=== PATIENT | female | born 1985 | race Caucasian/White ===

== ENCOUNTER 2019-10-22 18:47 | Inpatient (IN) | payer MEDICAID ==
[~2019-10-22] VITALS: Ht 157.5 cm; Wt 70.3 kg
[2019-10-22] MEDS: LACTATED RINGERS 1,000 ML IV SCH ×2 (18:55→19:50)
[2019-10-22] MEDS ORDERED: MISOPROSTOL 200MCG TABLET VG SCH (19:45)
[2019-10-22] MEDS ORDERED: BUTORPHANOL TARTRATE 2 MG/ML VIAL IV PRN ×2 (19:45→23:00)
[2019-10-22] MEDS ORDERED: TERBUTALINE SULFATE 1MG/ML VIAL SUBCUT PRN (19:45)
[2019-10-22] MEDS ORDERED: METHYLERGONOVINE MALEATE 0.2 MG/ML IM PRN (19:45)
[2019-10-22] MEDS ORDERED: CARBOPROST TROMETHAMINE 250 MCG/ML AMPUL IM PRN (19:45)
[2019-10-22] MEDS ORDERED: DEXT 5%/LR + PITOCIN 20UNITS/L 1,000 ML IV SCH ×2 (19:45→22:29)
[2019-10-22] MEDS ORDERED: AMPICILLIN 2,000 MG in SODIUM CHLORIDE 0.9% 100 ML IV SCH (20:00)
[2019-10-22] MEDS ORDERED: LACTATED RINGERS 1,000 ML IV SCH (20:01)
[2019-10-22 20:41] LABS: BASOPHILS % 0.9 % (0.0-2.0); EOSINOPHILS % 0.2 % (0.0-5.0); HEMATOCRIT. 39.6 % (36.0-48.0); HEMOGLOBIN. 12.9 g/dL (12.0-16.0); LYMPHOCYTES % 26.5 % (20.0-50.0); MEAN CORPUSCULAR HEMOGLOBIN 28.3 pg (28.0-32.0); MEAN CORPUSCULAR VOLUME 87.1 fL (81.0-99.0); MEAN PLATELET VOLUME 10.5 fl (7.4-10.4); NEUTROPHILS % 63.4 % (40.0-76.0); PLATELET 256 x1000/uL (130-400); RED BLOOD CELL COUNT 4.55 mill/uL (4.2-5.4); RED CELL DISTRIBUTION WIDTH 15.7 % (11.6-14.6)
[2019-10-22 20:45] LABS: INR 0.9; PARTIAL THROMBOPLASTIN TIME 25.9 sec (23.4-31.0); PROTHROMBIN TIME 9.1 sec (9.6-11.0)
[2019-10-22 20:46] LABS: CLARITY URINE CLEAR (CLEAR); COLOR URINE YELLOW (YELLOW); KETONES URINE NEGATIVE (NEGATIVE); LEUKOCYTE ESTERASE URINE NEGATIVE (NEGATIVE); NITRITE URINE NEGATIVE (NEGATIVE); OCCULT BLOOD URINE NEGATIVE (NEGATIVE); PROTEIN URINE NEGATIVE (NEGATIVE); SPECIFIC GRAVITY URINE 1.011 (1.005-1.030); UROBILINOGEN URINE 0.2 E.U./dL (0.2-1.0)
[2019-10-22] MEDS ORDERED: CITRIC ACID/SODIUM CITRATE SOLN 30ML UDC PO NR (20:58)
[2019-10-22 20:59] LABS: *AMPHETAMINES SCREEN URINE NEGATIVE (NEGATIVE); *BARBITURATES SCREEN URINE NEGATIVE (NEGATIVE); *BENZODIAZEPINES SCREEN URINE NEGATIVE (NEGATIVE); *COCAINE SCREEN URINE NEGATIVE (NEGATIVE); METHADONE URINE SCREEN NEGATIVE (NEGATIVE)
[2019-10-22 21:00] LABS: CANNABINOID URINE SCREEN NEGATIVE (NEGATIVE); OPIATES URINE SCREEN NEGATIVE (NEGATIVE); PHENCYCLIDINE URINE SCREEN NEGATIVE (NEGATIVE)
[2019-10-22] MEDS ORDERED: EPHEDRINE SULFATE 50MG/ML VIAL ONE (21:03)
[2019-10-22] MEDS ORDERED: CEFAZOLIN SODIUM 1000MG/VIAL ONE (21:03)
[2019-10-22] MEDS ORDERED: METOCLOPRAMIDE HCL 10MG/2ML VIAL ONE (21:03)
[2019-10-22] MEDS ORDERED: PHENYLEPHRINE HCL 10 MG/ML 1ML (IV VIAL) IV ONE (21:03)
[2019-10-22] MEDS ORDERED: MORPHINE SULFATE/PF 1MG/ML 10ML AMP ONE (21:03)
[2019-10-22] MEDS ORDERED: FENTANYL CITRATE/PF 50MCG/ML 2ML VIAL ONE (21:03)
[2019-10-22] MEDS ORDERED: GLYCOPYRROLATE 0.2 MG/ML 2ML VIAL ONE (21:03)
[2019-10-22] MEDS ORDERED: ONDANSETRON HCL 4MG/2ML INJ ONE (21:03)
[2019-10-22] MEDS ORDERED: OXYTOCIN 10 UNITS/ML 1ML ONE ×2 (21:03→22:01)
[2019-10-22] MEDS ORDERED: SODIUM CHLORIDE 0.9% 10ML VIAL ONE (21:09)
[2019-10-22 21:20] LABS: HEPATITIS B SURFACE ANTIGEN NEGATIVE
[2019-10-22] MEDS ORDERED: MIDAZOLAM HCL 2 MG/2 ML VIAL ONE (21:53)
[2019-10-22] MEDS ORDERED: DIPHENHYDRAMINE 50MG/ML VIAL ONE (21:57)
[2019-10-22] MEDS ORDERED: KETOROLAC 60MG/2ML VIAL IM ONE (21:57)
[2019-10-22] MEDS ORDERED: BISACODYL 10MG SUPP PR PRN (22:30)
[2019-10-22] MEDS ORDERED: RHO(D) IMMUNE GLOBULIN 300 MCG/SYR IM PRN (22:30)
[2019-10-22] MEDS ORDERED: IBUPROFEN 400MG TABLET PO PRN (22:30)
[2019-10-22] MEDS ORDERED: DIPHENHYDRAMINE 50MG/ML VIAL IV PRN (23:00)
[2019-10-22] MEDS ORDERED: NALOXONE HCL 0.4 MG/ML 1ML VIAL IV PRN (23:00)
[2019-10-22] MEDS ORDERED: KETOROLAC 30MG/ML VIAL IV SCH (23:00)
[2019-10-23] MEDS ORDERED: KETOROLAC 30MG/ML VIAL IV PRN
[2019-10-23 01:45] VITALS: BP 119/64
[2019-10-23] MEDS ORDERED: AMPICILLIN 1,000 MG in SODIUM CHLORIDE 0.9% 50 ML IV SCH (02:00)
[2019-10-23 02:45] VITALS: BP 121/66
[2019-10-23 04:20] VITALS: BP 103/64
[2019-10-23] MEDS ORDERED: KETOROLAC 30MG/ML VIAL ONE (05:52)
[2019-10-23] MEDS ORDERED: KETOROLAC 30MG/ML VIAL IV NR ×2 (06:00→06:12)
[2019-10-23 07:30] VITALS: BP 97/53
[2019-10-23 08:49] LABS: BASOPHILS % 0.4 % (0.0-2.0); EOSINOPHILS % 0.2 % (0.0-5.0); HEMATOCRIT. 27.2 % (36.0-48.0); LYMPHOCYTES % 18.7 % (20.0-50.0); MEAN CORPUSCULAR HEMOGLOBIN 28.9 pg (28.0-32.0); MEAN CORPUSCULAR VOLUME 87.1 fL (81.0-99.0); MONOCYTES % 8.5 % (2.0-8.0); NEUTROPHILS % 72.2 % (40.0-76.0); PLATELET 188 x1000/uL (130-400); RED BLOOD CELL COUNT 3.12 mill/uL (4.2-5.4); RED CELL DISTRIBUTION WIDTH 15.9 % (11.6-14.6)
[2019-10-23] MEDS: IBUPROFEN 800MG TABLET PO PRN ×3 (09:15→21:42)
[2019-10-23 15:30] VITALS: BP 98/52
[2019-10-23 20:00] VITALS: BP 98/60
[2019-10-23] MEDS ORDERED: TETANUS, DIPHTHERIA, PERTUSSIS VAC/PF 0.5ML (>7YR OLD) IM ONE (20:00)
[2019-10-24] VITALS: BP 99/60
[2019-10-24 04:00] VITALS: BP_SYST 101; BP_SYST 106; BP_DIAS 60; BP_DIAS 63
[2019-10-24] MEDS: IBUPROFEN 800MG TABLET PO PRN ×4 (04:40→21:58)
[2019-10-24 09:00] VITALS: BP 104/65
[2019-10-24] MEDS ORDERED: ACETAMINOPHEN WITH CODEINE 300/30MG TABLET PO NR (09:00)
[2019-10-24 17:01] VITALS: BP 96/59
[2019-10-24 20:00] VITALS: BP 95/42
[2019-10-25] VITALS: BP 96/61
[2019-10-25] MEDS: IBUPROFEN 800MG TABLET PO PRN ×2 (04:23→10:12)
[2019-10-25 05:19] VITALS: BP 100/62
[2019-10-25 08:00] VITALS: BP 104/57
== END 2019-10-25 12:52 | disposition home or self-care (01) | DRG 540 ==
LOC: OBSVTOIN 18:47 → 8 EST LDRP 18:47 → 8EST 10-23 01:50
PROVIDERS: ADMIT Obstetrics & Gynecology; ATTEND Obstetrics & Gynecology
PROC: 10D00Z1 Extraction of Products of Conception, Low, Open Approach (ICD-10-PCS; principal; 2019-10-22)
DX: O32.8XX0 Maternal care for other malpresentation of fetus, not applicable or unspecified (principal); D62 Acute posthemorrhagic anemia; O34.211 Maternal care for low transverse scar from previous cesarean delivery; O99.03 Anemia complicating the puerperium; Z37.0 Single live birth; Z3A.39 39 weeks gestation of pregnancy; Z90.49 Acquired absence of other specified parts of digestive tract
CPT/HCPCS: 36415; 80305; 81003; 85025; 86592; 86703; 86762; 86850; 86900; 86920; 87340; 88307; 90715; 99281; G0378; J0290; J0690; J1200; J1885; J2210; J2250; J2274; J2370; J2405; J2590; J2765; J3010; J3105; J3490; J7050; A4315

== ENCOUNTER 2019-11-05 14:17 | Emergency (ER) | payer MEDICAID ==
[~2019-11-05] VITALS: Ht 165.1 cm; Wt 75.0 kg
[2019-11-05 19:38] LABS: BASOPHILS % 1.2 % (0.0-2.0); EOSINOPHILS % 2.9 % (0.0-5.0); HEMATOCRIT. 33.9 % (36.0-48.0); HEMOGLOBIN. 11.3 g/dL (12.0-16.0); LYMPHOCYTES % 32.3 % (20.0-50.0); MEAN CORPUSCULAR VOLUME 87.3 fL (81.0-99.0); MEAN PLATELET VOLUME 6.9 fl (7.4-10.4); MONOCYTES % 5.5 % (2.0-8.0); NEUTROPHILS % 58.1 % (40.0-76.0); PLATELET 602 x1000/uL (130-400); RED BLOOD CELL COUNT 3.88 mill/uL (4.2-5.4); RED CELL DISTRIBUTION WIDTH 16.6 % (11.6-14.6)
[2019-11-05 19:43] LABS: CHLORIDE 108 mEq/L (98-107)
[2019-11-05 19:53] LABS: B-HCG QUANTITATIVE 5 mIU/mL (<3)
[2019-11-05 20:41] LABS: CLARITY URINE CLOUDY (CLEAR); COLOR URINE YELLOW (YELLOW); KETONES URINE NEGATIVE (NEGATIVE); LEUKOCYTE ESTERASE URINE 2+ (NEGATIVE); NITRITE URINE POSITIVE (NEGATIVE); OCCULT BLOOD URINE 3+ (NEGATIVE); PH URINE 5.5 (4.5-8.0); PROTEIN URINE 2+ (NEGATIVE); SPECIFIC GRAVITY URINE 1.021 (1.005-1.030)
[2019-11-05 21:15] VITALS: BP 129/73
== END 2019-11-05 21:16 | disposition home or self-care (01) ==
LOC: ER 14:17
DX: N94.6 Dysmenorrhea, unspecified (principal); N39.0 Urinary tract infection, site not specified; Z90.49 Acquired absence of other specified parts of digestive tract
CPT/HCPCS: 36415; 76856; 80053; 81003; 84443; 84702; 85025; 86850; 86900; 99285